=== PATIENT | female | born 1940 | race Caucasian/White ===

== ENCOUNTER 2018-06-21 13:00 | Outpatient (RCR) | payer MEDICARE ==
[2018-03-27 14:11] VITALS: BP 121/56; PULSE 88; TEMP 98.2
[2018-04-12 15:03] VITALS: BP 131/73; PULSE 88; TEMP 97.1
[2018-05-10 15:22] VITALS: BP 118/75; PULSE 104; TEMP 99.2
[2018-06-07 13:16] VITALS: BP 99/41; PULSE 98; TEMP 98.1
[~2018-06-21] VITALS: Ht 152.4 cm; Wt 79.5 kg
[~2018-06-21 13:00] MED LIST: CALAN120 MG; CIPRO 500MG TA500 MG PO; COZAAR 25MG25 MG/TAB; FOSAMAX 70MG TA70 MG PO; GLUCOPHAGE1000 MG PO; LIPITOR 10MG10 MG PO; PRINCIPEN250 MG PO
== END 2018-06-25 | disposition home or self-care (01) ==
LOC: EUO
DX: I96 Gangrene, not elsewhere classified (principal); L89.154 Pressure ulcer of sacral region, stage 4; L89.324 Pressure ulcer of left buttock, stage 4

== ENCOUNTER 2018-08-23 14:00 | Outpatient (RCR) | payer MEDICARE ==
[2018-06-28 13:44] VITALS: BP 122/62; PULSE 104; TEMP 97.5
--- NOTE | 2018-07-19 14:18 | NUR ---
CLIENT DID NOT SHOW FOR APPOINTMENT TODAY AFTER WAITING 20 MINUTES. DAUGHTER, EMERGENCY CONTACTS, SON, AND [facility] ALL WERE CONTACTED TO TRY TO REACH PATIENT. SUPPLIES LEFT FOR CLIENT AT [employer] [facility] FOR CONTINUING HOME CARE DRESSING CHANGES. CLIENT WILL TRY TO BE CONTACTED FOR SCHEDULING A NEW FOLLOW UP.
[~2018-08-23] VITALS: Ht 152.4 cm; Wt 58.0 kg
[2018-08-23 16:38] VITALS: BP 106/60; PULSE 89; TEMP 97.8
--- NOTE | 2018-08-23 16:44 | NUR ---
SEE DR. ARREOLA DICTATION SACRUM- 2.1 CM x 3.0 CM x 2.2 CM UNDERMINING- 2.7 CM RIGHT GLUTE- 3.0 CM x 2.5 CM x 7.9 CM
== END 2018-09-26 | disposition home or self-care (01) ==
LOC: EUO
DX: L89.324 Pressure ulcer of left buttock, stage 4 (principal); L89.154 Pressure ulcer of sacral region, stage 4; Z48.00 Encounter for change or removal of nonsurgical wound dressing

== ENCOUNTER 2018-11-01 13:01 | Outpatient (RCR) | payer MEDICARE ==
[~2018-11-01] VITALS: Ht 152.4 cm; Wt 128.0 kg
[2018-11-01 13:18] VITALS: BP 122/61; PULSE 84
== END 2018-11-15 13:02 | disposition home or self-care (01) ==
LOC: EUO 13:01
DX: I96 Gangrene, not elsewhere classified (principal); L89.154 Pressure ulcer of sacral region, stage 4

== ENCOUNTER 2019-01-24 12:40 | Outpatient (RCR) | payer MEDICARE ==
[~2019-01-24] VITALS: Ht 152.4 cm; Wt 60.0 kg
[2019-01-24 12:59] VITALS: BP 139/61; PULSE 78; TEMP 98
== END 2019-04-24 | disposition home or self-care (01) ==
LOC: EUO
DX: S31.809A Unspecified open wound of unspecified buttock, initial encounter (principal)

== ENCOUNTER → 2019-06-13 | Outpatient (CLI) | payer MEDICARE, MEDICAID ==
[2019-06-13 17:25] LABS: BASO % 0.6 % (0.0-2.0); EOS # 0.1 (0.0-0.7); EOS % 1.1 % (0-4.0); GRAN # 4.9 (1.4-6.5); GRAN % 73.3 % (42.2-75.2); HEMATOCRIT 40.1 % (37.0-47.0); HEMOGLOBIN 12.2 g/dl (12.5-16.0); LYMPH # 1.1 (1.2-3.4); LYMPH % 16.7 % (20.0-51.0); MEAN CELL VOLUME 79 fl (80.0-100.0); MEAN CORPUSCULAR HEMOGLOBIN 24 pg (27.0-31.0); MEAN CORPUSCULAR HGB CONC 30 g/dl (33.0-37.0); MEAN PLATELET VOLUME 12.3 fl (7.4-10.4); MONO # 0.5 (0.1-0.6); PLATELET COUNT 261 K/mm3 (130-400); RED BLOOD COUNT 5.07 M/mm3 (4.10-5.30); REDCELL DISTRIBUTION WIDTH-CV 19.8 % (11.5-14.5)
[2019-06-13 17:46] LABS: ALBUMIN 3.2 gm/dL (3.5-5.0); BILIRUBIN,TOTAL 0.2 mg/dL (0.0-1.0); CHOLESTEROL RISK RATIO 4.6; CREATININE, serum 0.38 (0.52-1.25); POTASSIUM 4.3 mmol/L (3.4-5.0); TOTAL PROTEIN 6.6 gm/dL (6.4-8.2)
== END ==
LOC: ZCOL.LAB 15:59
PROVIDERS: Family Medicine
DX: E11.9 Type 2 diabetes mellitus without complications (principal)

== ENCOUNTER → 2019-10-15 | Outpatient (CLI) | payer MEDICARE, MEDICAID ==
[2019-10-15 18:34] LABS: IRON,SERUM 28 ug/dL (35-150)
[2019-10-15 18:37] LABS: ALBUMIN 3.4 gm/dL (3.5-5.0); BILIRUBIN,TOTAL 0.3 mg/dL (0.0-1.0); CALCIUM 8.9 mg/dL (8.4-10.2); CREATININE, serum 0.4 (0.52-1.25); POTASSIUM 4.2 mmol/L (3.4-5.0); TOTAL PROTEIN 6.7 gm/dL (6.4-8.2)
[2019-10-15 18:40] LABS: BASO % 0.7 % (0.0-2.0); EOS # 0.1 (0.0-0.7); GRAN # 4.1 (1.4-6.5); GRAN % 72.5 % (42.2-75.2); HEMOGLOBIN 12.3 g/dl (12.5-16.0); LYMPH % 18.2 % (20.0-51.0); MEAN CELL VOLUME 81 fl (80.0-100.0); MEAN CORPUSCULAR HEMOGLOBIN 25 pg (27.0-31.0); MEAN CORPUSCULAR HGB CONC 31 g/dl (33.0-37.0); MEAN PLATELET VOLUME 12.4 fl (7.4-10.4); MONO # 0.4 (0.1-0.6); MONO % 7.3 % (1.7-9.3); PLATELET COUNT 292 K/mm3 (130-400); RED BLOOD COUNT 4.95 M/mm3 (4.10-5.30); REDCELL DISTRIBUTION WIDTH-CV 19.2 % (11.5-14.5)
[2019-10-15 18:43] LABS: TOTAL IRON BINDING CAPACITY 357 ug/dL (265-497)
== END ==
LOC: ZCOL.LAB 16:21
PROVIDERS: Family Medicine
DX: D64.9 Anemia, unspecified (principal); E11.9 Type 2 diabetes mellitus without complications